=== PATIENT | male | born 1970 | race African-American/Black ===

== ENCOUNTER 2025-06-06 09:44 | Inpatient (IN) | payer OTHER ==
[2025-06-06 09:57] VITALS: BMI 21.0
[2025-06-06] MEDS ORDERED: guaiFENesin 600 MG TABLET.ER (FP) PO PRN (10:15)
[2025-06-06] MEDS ORDERED: ONDANSETRON *ODT* 4 MG TABLET SL PRN (10:15)
[2025-06-06] MEDS ORDERED: BENZONATATE 200 MG CAPSULE PO PRN (10:15)
[2025-06-06] MEDS ORDERED: IBUPROFEN 400 MG TABLET (FP) PO PRN (10:15)
[2025-06-06] MEDS ORDERED: NICOTINE POLACRILEX 4 MG GUM BUC PRN (10:15)
[2025-06-06] MEDS ORDERED: DICYCLOMINE HCL 10 MG CAPSULE PO PRN (10:15)
[2025-06-06] MEDS ORDERED: ACETAMINOPHEN 325 MG TABLET (FP) PO PRN (10:15)
[2025-06-06] MEDS ORDERED: MAGNESIUM HYDROX 2400MG/30ML ORAL SUSPENSION 30 ML CUP PO PRN (10:15)
[2025-06-06] MEDS ORDERED: BISACODYL 5 MG TABLET.DR (FP) PO PRN (10:15)
[2025-06-06] MEDS ORDERED: IBUPROFEN 600 MG TABLET (FP) PO PRN (10:15)
[2025-06-06] MEDS ORDERED: LOPERAMIDE HCL 2 MG CAPSULE PO PRN (10:15)
[2025-06-06] MEDS ORDERED: BENZOCAINE/MENTHOL (CHLORASEPTIC ) LOZENGE MM PRN (10:15)
[2025-06-06] MEDS ORDERED: POLYETHYLENE GLYCOL (HEALTHYLAX) 3350 17 GM PACKET PO PRN (10:15)
[2025-06-06] MEDS ORDERED: NALOXONE (NARCAN) HCL 4 MG/0.1 ML SPRAY NS PRN (10:15)
[2025-06-06] MEDS: THIAMINE 100 MG TABLET PO SCH (22:42)
[2025-06-06] MEDS: MELATONIN 5 MG TABLETS PO SCH (22:42)
[2025-06-07 09:18] LABS: MCHC 32.1 g/dl (32.3-36.5); MEAN CELL VOLUME 91.4 fl (79.0-92.2); MEAN PLT VOLUME 9.7 fl (9.4-12.4); RDW 13.4 % (12.2-16.1)
[2025-06-07 09:31] LABS: GLUCOSE,RANDOM 90 mg/dL (74-106); TOT PROT 6.3 g/dl (6.4-8.2)
[2025-06-07 09:32] LABS: CO2 27 mmol/L (21-32)
[2025-06-07 09:34] LABS: ALK PHOS 42 U/L (40-150)
[2025-06-07 09:37] LABS: CREATININE 1.54 mg/dL (0.55-1.3); SGOT/AST 24 U/L (5-34); SGPT/ALT 21 U/L (0-55)
[2025-06-07 10:06] LABS: SICKLE CELL SCREEN NEGATIVE (NEGATIVE)
[2025-06-07] MEDS: PRENATAL VITAMINS W/ FOLIC ACID TABLET (FP) PO SCH (10:38)
[2025-06-08] MEDS: METHOCARBAMOL 500 MG TABLET PO PRN (10:51)
[2025-06-09] MEDS: MAG HYDROX/AL HYDROX/SIMETH 30 ML UNIT-DOSE CUP PO PRN (13:51)
[2025-06-09] MEDS: BISMUTH SUBSALICYLATE 524 MG/30 ML PO PRN (22:08)
[2025-06-10] MEDS: FAMOTIDINE 20 MG TABLET PO SCH (15:41)
[2025-06-11 07:08] VITALS: TEMP 98.2
[2025-06-11 09:45] VITALS: BP 117/69; PULSE 67; RESP 17
== END 2025-06-11 09:42 | disposition home or self-care (01) | DRG 772 ==
LOC: YASAS 09:44 → Y6N 10:34
PROVIDERS: ADMIT Allergy & Immunology; ATTEND Counselor Addiction (Substance Use Disorder)
PROC: HZ42ZZZ Group Counseling for Substance Abuse Treatment, Cognitive-Behavioral (ICD-10-PCS; principal; 2025-06-06)
DX: F11.23 Opioid dependence with withdrawal (principal); F10.230 Alcohol dependence with withdrawal, uncomplicated; F14.20 Cocaine dependence, uncomplicated; F12.10 Cannabis abuse, uncomplicated; F17.210 Nicotine dependence, cigarettes, uncomplicated; D64.9 Anemia, unspecified; N28.9 Disorder of kidney and ureter, unspecified
CPT/HCPCS: 36415; 80053; 80307; 85027; 85660; 86780; 93005; 93010